=== PATIENT | male | born 1980 | race Two or more races ===

== ENCOUNTER 2018-05-24 19:03 | Emergency (ER) | payer OTHER ==
--- NOTE | 2018-05-24 19:28 | EDPHY ---
HPI/HX/ROS/PE/MDM Narrative: CHIEF COMPLAINT: Syncope, abdominal pain. HPI: This patient is a Welsh-speaking 37 year old male with history of pancreatitis and alcohol abuse. He complains of syncope and abdominal pain. He states his abdominal pain began yesterday, but is worse today. He states he had been vomiting for three days prior to this. He believes he had a syncopal event which cause him to fall down a flight of stairs. He denies consuming any alcohol today, and states his last drink was yesterday. Further HPI difficult to obtain, patient appears quite intoxicated. HPI obtained via highway technician on iPad at bedside. REVIEW OF SYSTEMS: Unable to obtain. PMH: Pancreatitis. Alcohol abuse. Appendectomy. SOCIAL HISTORY: Lives in [place]. Self-employed. . PHYSICAL EXAM: General:Patient is intoxicated appearing, in no acute distress. Head: Multiple abrasions to forehead. ENT:Eyes are normal to inspection. Multiple abrasions to lips. ENT inspection otherwise normal. Neck: Normal inspection. Full range of motion. Respiratory:No respiratory distress. Breath sounds normal bilaterally. Cardiovascular: Regular rate and rhythm. Strong peripheral pulses. Normal cap refill. Abdomen:The abdomen is nontender to palpation. There are no peritoneal signs. There are normal bowel sounds. Back: Normal to inspection. No tenderness to palpation. Skin: Normal color. No rash. Warm and dry. Extremities: Normal appearance. Full range of motion. Neuro: Oriented x3. Normal motor function. Normal sensory function. ED Course: 37 y/o male with history of pancreatitis and alcohol abuse presents with abdominal pain. He has multiple abrasions across his forehead secondary to a reported fall down a flight of stairs. Patient appears intoxicated and smells of alcohol. Plan for CT head for further evaluation. Plan for labs including CBC , chemistries, liver, lipase, ETOH. Reviewed laboratory studies. LFTs elevated. Lipase negative. 20:[address] Locke, radiologist. CT head negative for acute processes. ETOH 403. Plan to discharge patient to the [facility] in good condition. - Data Points Imaging Results: Imaging Impressions Head CT 05/24/18 19:42 Impression: Normal noncontrast CT of the brain. Results called to Dr. Russell Schmitt at 8:25 PM at the time of the interpretation. Imaging: Discussed imaging studies w/ orthopedically impaired teacher Radiologist Laboratory Results: Laboratory Results 05/24/18 19:40 05/24/18 19:40 05/24/18 05/24/18 05/24/18 19:40 19:40 19:40 WBC RBC Hgb Hct MCV MCH MCHC RDW Plt Count MPV Neut % (Auto) Lymph % (Auto) [place] % (Auto) Eos % (Auto) Baso % (Auto) Nucleat RBC Rel Count Absolute Neuts (auto) Absolute Lymphs (auto) Absolute Monos (auto) Absolute Eos (auto) Absolute Basos (auto) Absolute Nucleated RBC Immature Gran % Immature Gran # PT 15.7 SEC H SEC (12.0-15.0) INR 1.23 H (0.83-1.16) APTT 32.8 SEC SEC (23.0-38.0) Sodium 141 mEq/L mEq/L (135-145) Potassium 4.2 mEq/L mEq/L (3.3-5.0) Chloride 106 mEq/L mEq/L (97-110) Carbon Dioxide 25 mEq/l mEq/l (22-31) Anion Gap 10 mEq/L mEq/L (8-16) BUN 8 mg/dL mg/dL (7-23) Creatinine 0.7 mg/dL mg/dL (0.7-1.3) Estimated GFR > 60 Glucose 217 mg/dL H mg/dL (70-100) Calcium 8.6 mg/dL mg/dL (8.5-10.4) Total Bilirubin 1.5 mg/dL H mg/dL (0.1-1.4) Conjugated Bilirubin 1.1 mg/dL H mg/dL (0.0-0.5) Unconjugated Bilirubin 0.4 mg/dL mg/dL (0.0-1.1) AST 479 IU/L H IU/L (17-59) ALT 170 IU/L H IU/L (21-72) Alkaline Phosphatase 183 IU/L H IU/L (38-126) Total Protein 6.6 g/dL g/dL (6.3-8.2) Albumin 3.6 g/dL g/dL (3.5-5.0) Lipase 44 IU/L IU/L (23-300) Ethyl Alcohol 403 mg/dL H* mg/dL (0-10) 07/15/18 19:40 WBC 3.95 10^3/uL 10^3/uL (3.80-9.50) RBC 4.84 10^6/uL 10^6/uL (4.40-6.38) Hgb 16.5 g/dL g/dL (13.7-17.5) Hct 45.6 % % (40.0-51.0) MCV 94.2 fL fL (81.5-99.8) MCH 34.1 pg pg (27.9-34.1) MCHC 36.2 g/dL g/dL (32.4-36.7) RDW 10.8 % L % (11.5-15.2) Plt Count 112 10^3/uL L 10^3/uL (150-400) MPV 10.5 fL fL (8.7-11.7) Neut % (Auto) 42.7 % % (39.3-74.2) Lymph % (Auto) 49.6 % H % (15.0-45.0) [place] % (Auto) 6.6 % % (4.5-13.0) Eos % (Auto) 0.0 % L % (0.6-7.6) Baso % (Auto) 0.8 % % (0.3-1.7) Nucleat RBC Rel Count 0.0 % % (0.0-0.2) Absolute Neuts (auto) 1.69 10^3/uL L 10^3/uL (1.70-6.50) Absolute Lymphs (auto) 1.96 10^3/uL 10^3/uL (1.00-3.00) Absolute Monos (auto) 0.26 10^3/uL L 10^3/uL (0.30-0.80) Absolute Eos (auto) 0.00 10^3/uL L 10^3/uL (0.03-0.40) Absolute Basos (auto) 0.03 10^3/uL 10^3/uL (0.02-0.10) Absolute Nucleated RBC 0.00 10^3/uL 10^3/uL (0-0.01) Immature Gran % 0.3 % % (0.0-1.1) Immature Gran # 0.01 10^3/uL 10^3/uL (0.00-0.10) PT INR APTT Sodium Potassium Chloride Carbon Dioxide Anion Gap BUN Creatinine Estimated GFR Glucose Calcium Total Bilirubin Conjugated Bilirubin Unconjugated Bilirubin AST ALT Alkaline Phosphatase Total Protein Albumin Lipase Ethyl Alcohol Medications Given: Discontinued Medications Sodium Chloride (Ns) 1,000 mls @ 0 mls/hr IV EDNOW ONE; Wide Open PRN Reason: Protocol Stop: 05/24/18 19:43 Last Admin: 05/24/18 19:56 Dose: 1,000 mls General Time Seen by Provider: 05/24/18 19:18 Initial Vital Signs: Initial Vital Signs Temperature (C) 36.5 C 05/24/18 19:05 Heart Rate 94 05/24/18 19:05 Respiratory Rate 18 05/24/18 19:05 Blood Pressure 119/82 H 05/24/18 19:05 O2 Sat (%) 97 05/24/18 19:05 O2 Delivery Mode Room Air Allergies/Adverse Reactions: No Known Allergies Allergy (Verified 09/23/16 10:22) Home Medications: Medication Instructions Recorded Nicotine [Nicoderm Cq 21 mg (*)] 21 mg TD DAILY #20 patch 09/28/16 Sennosides/Docusate Sodium 1 - 2 tab PO BID PRN #0 tab 09/28/16 [Senokot-S] oxyCODONE IR [Oxycodone Ir (*)] 1 - 2 tab PO Q4HRS PRN #10 tab 09/28/16 Departure - Departure Disposition: Home, Routine, Self-Care Clinical Impression: Alcoholic intoxication Qualifiers: Complication of substance-induced condition: uncomplicated Qualified Code(s): F10.920 - Alcohol use, unspecified with intoxication, uncomplicated Facial abrasion Qualifiers: Encounter type: initial encounter Qualified Code(s): S00.81XA - Abrasion of other part of head, initial encounter Condition: Fair Instructions: Alcohol Intoxication (ED), Abrasion (ED) Additional Instructions: Please refrain from abusing alcohol. Proceed to the [facility] as directed. Return to the emergency department for fever, vomiting, confusion, headache, abdominal pain or other worsening of condition. Follow up with your primary care physician. Referrals: [facility] [Outside] - As per Instructions Report Scribed for: Russell Schmitt Report Scribed by: Silvia Grover Date of Report: 05/24/18 Time of Report: 21:20 Physician Review and Approval Statement: Portions of this note were transcribed by an ED scribe. I personally performed the history, physical exam, and medical decision making; and confirm the accuracy of the information in the transcribed note.
[2018-05-24] MEDS ORDERED: NS 1,000 ML IV ONE (19:42)
[2018-05-24 20:14] LABS: INR 1.23 (0.83-1.16); PROTIME(PATIENT) 15.7 SEC (12.0-15.0)
[2018-05-24 20:17] LABS: PLATELET COUNT 112 10^3/uL (150-400)
[2018-05-24 21:47] VITALS: BP 112/77
== END 2018-05-24 20:10 | disposition home or self-care (01) ==
DX: S00.81XA Abrasion of other part of head, initial encounter (principal); F10.920 Alcohol use, unspecified with intoxication, uncomplicated; E86.9 Volume depletion, unspecified; W10.9XXA Fall (on) (from) unspecified stairs and steps, initial encounter
CPT/HCPCS: G0480